=== PATIENT | female | born 1945 | race Caucasian/White ===

== ENCOUNTER 2018-02-26 07:55 | Outpatient (CLI) | payer MEDICARE ==
[2018-02-26] MEDS ORDERED: Iopamidol 370 76% 100 ML VIAL ONE (12:33)
--- NOTE | 2018-02-27 18:27 | CT ---
CT ABDOMEN AND PELVIS WITH CONTRAST 02/27/18 HISTORY: K57.41 - diverticulitis with perforation. COMPARISON: None. FINDINGS: The lung bases are clear. No pericardial effusion. There is acute sigmoid diverticulitis with extensive inflammatory stranding, likely a small focal are a of contained perforation. There is engorgement of the gonadal veins. The aortoiliac contour is denis neurysmal. No hydroureteronephrosis. Liver and spleen are unremarkable as well as the pancreas. Small sliding hiatal hernia. There is smal l volume fluid on the right pericolic gutter. IMPRESSION: Acute sigmoid diverticulitis with likely a very small focal area of contained perforation along the a ntimesenteric wall. POS: SANTINO
== END 2018-02-26 07:56 | disposition home or self-care (01) ==
LOC: BICCT 07:55
PROVIDERS: ATTEND Surgery
DX: K57.41 Diverticulitis of both small and large intestine with perforation and abscess with bleeding (principal)
CPT/HCPCS: 74177

== ENCOUNTER 2018-02-26 15:06 | Inpatient (IN) | payer MEDICARE ==
[2018-02-26 16:36] LABS: #Eosinphils 0.1 thou/uL (0.0-0.7); #Lymphocytes 1.1 thou/uL (1.20-3.40); #Monocytes 0.9 thou/uL (0.11-0.59); %Basophils 0.3 % (0.0-1.0); %Lymphocytes 8.5 % (21.0-51.0); %Monocytes 7.1 % (0.0-10.0); %Neutrophils 83.2 % (42.0-75.0); Hemoglobin 13.3 g/dL (12.0-16.0); Mean Corpuscular HGB CONC 33.7 g/dL (32.0-36.0); Mean Corpuscular Hemoglobin 30.4 pg (27.0-31.0); Mean Corpuscular Volume 90.1 fl (81.0-99.0); Mean Platelet Volume 7.5 fL (7.4-10.4); Platelet Count 336 thou/uL (130-400); RBC Distribution Width 12.1 % (11.5-14.5); Red Blood Cell (RBC) Count 4.39 mill/uL (4.20-5.40); White Blood Cell (WBC) Count 13.3 thou/uL (4.8-10.8)
[2018-02-26 16:59] LABS: ALT (SGPT) 11 U/L (8-55); AST (SGOT) 21 U/L (5-34); Albumin 4.2 g/dL (3.4-4.8); Alkaline Phosphatase 83 U/L (40-150); Anion Gap 12 mmol/L (10-20); BUN (Urea Nitrogen) 9 mg/dL (9.8-20.1); Bilirubin, Total 0.6 mg/dL (0.2-1.2); Calc. Creatinine Clearance 0 mL/min (70-130); Calcium 9.6 mg/dL (7.8-10.44); Carbon Dioxide 25 mmol/L (23-31); Chloride 104 mmol/L (98-107); Estimated GFR-MDRD 78; Globulin 4.1 g/dL (2.4-3.5); Glucose 109 mg/dL (83-110); Lipase 44 U/L (8-78); Potassium 3.7 mmol/L (3.5-5.1); Protein, Total 8.3 g/dL (6.0-8.3); Sodium 137 mmol/L (136-145)
[2018-02-26 17:02] LABS: Bilirubin Negative (Negative); Blood, Urine Moderate (Negative); Clarity CLEAR (Clear); Glucose, Urine (Dipstick) Negative (Negative); Leukocyte Small (Negative); Nitrite Negative (Negative); Protein, Urine (Dipstick) Negative (Neg-Trace); Specific Gravity, Urine 1.036 (1.002-1.036); Urobilinogen 0.2 mg/dL (0.2-1.0)
[2018-02-26 17:02] LABS: CKMB 0.6 ng/mL (0-6.6); Troponin I Less than 0.010 ng/mL (< 0.028)
[2018-02-26 17:07] LABS: Bacteria/HPF None Seen HPF (None Seen); Hyaline Casts/LPF 0-3 HYALINE CAST LPF (0-3 Hyaline); Pathc Cast-AUWi Flag 0.29 (0-2.49); RBC/HPF 21-50 HPF (0-3); Squamous Epithelial 0-3 HPF (0-3)
[2018-02-26] MEDS ORDERED: Morphine 4 MG/ML VIAL ONE (17:15)
[2018-02-26] MEDS ORDERED: Ondansetron ODT 4 MG TAB ONE (17:21)
[2018-02-26] MEDS ORDERED: Acetaminophen 500 MG TAB ONE (18:34)
[2018-02-26] MEDS ORDERED: cefTRIAXone\\ROCEPHIN 2 GM VIAL ONE (19:41)
[2018-02-26] MEDS ORDERED: Sodium Chloride 0.9% 100 ML ONE (19:42)
[2018-02-26 20:25] LABS: Lactic Acid 0.8 mmol/L (0.5-2.2)
[2018-02-26] MEDS ORDERED: Ondansetron HCl/PF 4 MG/2 ML Vial IVP PRN (21:55)
[2018-02-26] MEDS ORDERED: Ondansetron ODT 4 MG TAB PO PRN (21:55)
--- NOTE | 2018-02-26 22:30 | PDOC.FPRHP ---
- History of Present Illness Chief Complaint: lower abdominal pain History of Present Illness: 72 yo CF with PMHx recent diverticulitis with suspected perforation s/p abx therapy and hospitalization presents for worsened abdominal pain. Pt saw Dr. Diaz recently who ordered repeat abd CT to reevaluate suspected microperforation from hospitalization from 02/01-02/07. CT scan showed diverticula without sign of inflammation or diverticulitis. Since discharge from hospital, she has completed total of 16 day course of cipro/flagyl started 02/01. Endorses minimal appetite and generalized weakness since last admission. last night, pt had small amount of vomiting x1 attributed to abdominal pain. After CT scan today, she went home and began having more intense diffuse lower abdominal pain that felt just like prior episode leading to hospitalization. Endorsed chills without fever. BMs have become more solid over last few days without blood. Pain not improved with BM. In ED, pt had fever 102.7 with tachycardia so admitted with concern for suspected sepsis. Pt has appt scheduled tomorrow with Dr. Diaz. PCP: Dr. Ott Code status: Full ED Course: Vanc 1g, Rocephin 2g, Levaquin 500 mg, morphine 4mg, NS 2L. - Allergies/Adverse Reactions Allergies Allergy/AdvReac Type Severity Reaction Status Date / Time Sulfa (Sulfonamide Allergy Verified 02/26/18 21:36 Antibiotics) - Home Medications Medication Instructions Recorded Confirmed Type Aspirin [Ecotrin] 81 mg PO HS 02/26/18 02/26/18 History Pantoprazole [Protonix] 40 mg PO HS 02/26/18 02/26/18 History Simvastatin [Zocor] 20 mg PO HS 02/26/18 02/26/18 History Valsartan [Diovan] 80 mg PO HS 02/26/18 02/26/18 History diphenhydrAMINE [Benadryl] 25 mg PO HS 02/26/18 02/26/18 History - History PMHx: HTN, HLD, GERD, diverticulosis, hx Meckel's diverticulum PSHx: C/S x1 in 's, appendectomy FHx: Mother - CVA. Father - COPD, diverticulosis, prostate cancer. Sister - MS Social: Distant smoking hx - quit > 50 yrs ago. Denies alcohol or drug use. - Review of Systems General: reports: fever/chills, weight/appetite/sleep changes, fatigue Eyes: denies: eye pain, vision changes ENT: denies: nasal congestion, rhinorrhea Respiratory: denies: cough, shortness of breath Cardiovascular: denies: chest pain, edema Gastrointestinal: reports: nausea, vomiting, abdominal pain. denies: diarrhea, constipation, GI bleeding Genitourinary: denies: incontinence, dysuria, polyuria, discharge Skin: denies: rashes, itching Musculoskeletal: denies: pain, stiffness Neurological: reports: weakness. denies: numbness Psychological: denies: anxiety, depression - Vital signs BP: 157/100 HR: 126 RR: 20 Tmax: 102.6 Pox: 94% on RA Wt: 74.8 kg - Physical Exam Constitutional: NAD, awake, alert and oriented, well developed, other (warm and mildly diaphoretic) HEENT: PERRLA, EOMI, conjunctiva clear, grossly normal vision, grossly normal hearing, good dention, other (mildly dry mucous membranes) Neck: supple, FROM Heart: RRR, normal S1/S2, no murmurs/rubs/gallops Lungs: CTAB, no respiratory distress, good air movement, no rales/rhonchi Abdomen: soft, bowel sounds present, no masses/distention, other (moderately TTP LLQ, mildly TTP suprapubic and RLQ; no guarding/rigidity/rebound) Musculoskeletal: normal structure, ROM grossly normal Neurological: no focal deficit, CN II-XII intact Skin: no rash/lesions, capillary refill <2 seconds, other (mild facial flushing) Psychiatric: normal mood and affect, good judgment and insight, intact recent and remote memory FMR H&P: Results - Labs Result Diagrams: 02/26/18 16:27 02/26/18 16:27 Lab results: WBC 13.3 thou/uL (4.8-10.8) H 02/26/18 16:27 Hgb 13.3 g/dL (12.0-16.0) 02/26/18 16:27 Hct 39.6 % (36.0-47.0) 02/26/18 16:27 MCV 90.1 fl (81.0-99.0) 02/26/18 16:27 Plt Count 336 thou/uL (130-400) 02/26/18 16:27 Neutrophils % 83.2 % (42.0-75.0) H 02/26/18 16:27 Sodium 137 mmol/L (136-145) 02/26/18 16:27 Potassium 3.7 mmol/L (3.5-5.1) 02/26/18 16:27 Chloride 104 mmol/L (98-107) 02/26/18 16:27 Carbon Dioxide 25 mmol/L (23-31) 02/26/18 16:27 BUN 9 mg/dL (9.8-20.1) L 02/26/18 16:27 Creatinine 0.73 mg/dL (0.6-1.1) 02/26/18 16:27 Glucose 109 mg/dL (83-110) 02/26/18 16:27 Lactic Acid 0.8 mmol/L (0.5-2.2) 02/26/18 19:59 Calcium 9.6 mg/dL (7.8-10.44) 02/26/18 16:27 Total Bilirubin 0.6 mg/dL (0.2-1.2) 02/26/18 16:27 AST 21 U/L (5-34) 02/26/18 16:27 ALT 11 U/L (8-55) 02/26/18 16:27 Alkaline Phosphatase 83 U/L (40-150) 02/26/18 16:27 CK-MB (CK-2) 0.6 ng/mL (0-6.6) 02/26/18 16:27 Serum Total Protein 8.3 g/dL (6.0-8.3) 02/26/18 16:27 Albumin 4.2 g/dL (3.4-4.8) 02/26/18 16:27 Lipase 44 U/L (8-78) 02/26/18 16:27 Urine Ketones Negative mg/dL (Negative) 02/26/18 16:48 Urine Blood Moderate (Negative) H 02/26/18 16:48 Urine Nitrite Negative (Negative) 02/26/18 16:48 Ur Leukocyte Esterase Small (Negative) H 02/26/18 16:48 Urine RBC 21-50 HPF (0-3) H 02/26/18 16:48 Urine WBC 4-6 HPF (0-3) H 02/26/18 16:48 Ur Squamous Epith Cells 0-3 HPF (0-3) 02/26/18 16:48 Urine Bacteria None Seen HPF (None Seen) 02/26/18 16:48 - EKG Interpretation EKG: NSR, normal EKG - Radiology Interpretation CT scan - abdomen Status: report reviewed by me Additional comment: Performed as outpt this AM. Diverticula present without signs of inflammation or diverticulitis. No free air noted. Other visualized organs negative. FMR H&P: A/P - Problem List (1) Sepsis, unspecified organism Current Visit: Yes Status: Acute Code(s): A41.9 - SEPSIS, UNSPECIFIED ORGANISM Qualifiers: Sepsis type: sepsis due to unspecified organism Qualified Code(s): A41.9 - Sepsis, unspecified organism Assessment and Plan: Meets criteria with elev WBCs, elev HR, and fever 102.6. Heavy IV fluids and broad spectrum abx in ED. Continue abx with coverage for intra-abdominal infections as abd pain suggests this as etiology. Lactate 2.1 and decreased on repeat. BCx/UCx ordered. UA dirty but does not appear to reflect UTI along with no urinary complaints. Vitals more stable currently so admitted to medical floor for expected 2-3 day stay. (2) Lower abdominal pain Current Visit: Yes Status: Acute Code(s): R10.30 - LOWER ABDOMINAL PAIN, UNSPECIFIED Assessment and Plan: Hx perforated diverticulitis. Recently finished abx around 8 days ago. Decreased appetite since late January. Abd pain has improved after IV fluids, abx , and morphine earlier in ED. Exam showed moderate TTP without peritoneal signs. No suspicion at this time for perforation. CT this AM showed no diverticulitis with symptoms occurring following scan. Will reimage if symptoms return. Consulted Dr. Diaz this evening. Appreciate his recs. NPO now. Continue IV abx to cover abdominal tana. Hold vanc. (3) Diverticula of colon Current Visit: Yes Status: Acute Code(s): K57.30 - DVRTCLOS OF LG INT W/O PERFORATION OR ABSCESS W/O BLEEDING Assessment and Plan: Known with prior hx of diverticulitis late last month. See above. No obvious recurrence of infection based on negative imaging this AM. Await gen surg recs. (4) Weakness generalized Current Visit: Yes Status: Acute Code(s): R53.1 - WEAKNESS Assessment and Plan: Pt endorses weakness since prior hospitalization that she attributes to not eating much over last 10 days. PT/OT evaluation ordered. (5) HTN (hypertension) Current Visit: Yes Status: Acute Code(s): I10 - ESSENTIAL (PRIMARY) HYPERTENSION Qualifiers: Hypertension type: essential hypertension Qualified Code(s): I10 - Essential (primary) hypertension Assessment and Plan: Continue home meds. (6) HLD (hyperlipidemia) Current Visit: Yes Status: Acute Code(s): E78.5 - HYPERLIPIDEMIA, UNSPECIFIED Assessment and Plan: Home meds Attending Addendum - Attending Addendum Date/Time: 02/27/186 I personally evaluated the patient and discussed the management with Dr. Dalia Hernandez I agree with the History, Examination, Assessment and Plan documented above with any addition or exceptions noted below- Briefly this is a 72 year old female with h/o HTN, GERD, HLD who was seen in the ER in [place] for abdominal pain then transferred to [place] on February 01 for diverticulitis with possible performation. Patient was admitted and monitored; she was treated with IV antibiotics. Symptoms improved and patient was discharged with po antibiotics and instructions for follow-up. Patient had follow-up with PCP and referred to general surgery who saw her and ordered repeat CT scan. Had repeat CT scan today after [facility] [place] she developed LLQ pain the same as previously and came to ER. In ER she was found to have fever up to 102.7 and is admitted for further evaluation. Prior to today had not had any fevers. She does endorse decreased appetite and her energy has never returned to her usualPMH/PSH/Meds/ All/SH/ROS reviewed and agree with resident's documentation. T99.4 P101 RR18 BP 114/70 Exam repeated by me and agree with resident's findings. Labs: WBC 13.3 Hgb13.[address] scan- diverticula present but no sign of inflammation. A/P 1) Fever and abdominal pain- continue IV abx. Blood cultures drawn and pending. Leave NPO for now. Dr. Diaz notified and will see patient in AM. 2) HTN- continue home meds.
[2018-02-26 22:39] VITALS: BMI 28.5
[2018-02-26] MEDS: Sodium Chloride 0.45% 1,000 ML IV SCH (23:02)
[2018-02-26] MEDS: metroNIDAZOLE 500 MG in Premix Bag 1 BAG IVPB SCH (23:08)
[2018-02-26] MEDS: Acetaminophen 325 MG TAB PO PRN (23:08)
[2018-02-27] MEDS: Acetaminophen 325 MG TAB PO PRN ×4 (04:03→16:43)
[2018-02-27 04:07] LABS: #Eosinphils 0.1 thou/uL (0.0-0.7); #Monocytes 1.5 thou/uL (0.11-0.59); #Neutrophils 13.6 thou/uL (1.40-6.50); %Basophils 0.3 % (0.0-1.0); %Eosinophils 0.4 % (0.0-10.0); %Lymphocytes 11.7 % (21.0-51.0); %Monocytes 8.9 % (0.0-10.0); %Neutrophils 78.7 % (42.0-75.0); Hemoglobin 11.7 g/dL (12.0-16.0); Mean Corpuscular HGB CONC 33.2 g/dL (32.0-36.0); Mean Corpuscular Hemoglobin 30.2 pg (27.0-31.0); Mean Platelet Volume 7.6 fL (7.4-10.4); Platelet Count 271 thou/uL (130-400); RBC Distribution Width 12.3 % (11.5-14.5); Red Blood Cell (RBC) Count 3.86 mill/uL (4.20-5.40); White Blood Cell (WBC) Count 17.3 thou/uL (4.8-10.8)
[2018-02-27 04:33] LABS: Anion Gap 10 mmol/L (10-20); BUN (Urea Nitrogen) 7 mg/dL (9.8-20.1); Calc. Creatinine Clearance 92 mL/min (70-130); Calcium 8.1 mg/dL (7.8-10.44); Carbon Dioxide 24 mmol/L (23-31); Chloride 107 mmol/L (98-107); Estimated GFR-MDRD 88; Glucose 98 mg/dL (83-110); Potassium 3.8 mmol/L (3.5-5.1); Sodium 137 mmol/L (136-145)
[2018-02-27] MEDS: metroNIDAZOLE 500 MG in Premix Bag 1 BAG IVPB SCH ×3 (05:44→22:34)
[2018-02-27] MEDS: Sodium Chloride 0.45% 1,000 ML IV SCH ×3 (05:45→22:35)
--- NOTE | 2018-02-27 09:31 | PDOC.FM ---
- Subjective Subjective: Patient still having pain this morning but not as severe as last night. Tolerable with tylenol. She is frustrated. Reports BM yesterday, no diarrhea. Small BM this AM. Pain is worst in LLQ- sharp at times. - Objective MAR Reviewed: Yes Vital Signs & Weight: Vital Signs (12 hours) Temp Pulse Resp BP Pulse Ox 02/27/18 08:00 98.2 F 84 16 95 02/27/18 07:21 98.2 F 84 16 133/78 95 02/27/18 04:00 97.9 F 85 20 145/75 H 100 02/27/18 00:00 99.3 F 93 20 102/64 95 02/26/18 23:23 99.4 F 101 H 18 94 L I&O: 02/26/18 02/27/18 02/28/18 06:59 06:59 06:59 Intake Total 818 Balance 818 Result Diagrams: 02/27/18 03:44 02/27/18 03:44 <Larisa Ritchie - Last Filed: 02/27/18 11:42> - Objective Vital Signs & Weight: Vital Signs (12 hours) Temp Pulse Resp BP Pulse Ox 02/28/18 07:29 98.8 F 97 16 148/76 H 95 Weight Admit Weight 75.438 kg Weight 75.438 kg I&O: 02/27/18 02/28/18 03/01/18 06:59 06:59 06:59 Intake Total 818 1300 Balance 818 1300 Result Diagrams: 02/28/18 03:30 02/28/18 03:30 <Michael Cristina A - Last Filed: 02/28/18 10:28> Phys Exam - Physical Examination Constitutional: NAD HEENT: moist MMs Respiratory: no wheezing, no rales, no rhonchi, clear to auscultation bilateral Cardiovascular: RRR, no significant murmur Gastrointestinal: soft Tender in LLQ, otherwise nontender. hyperactive BS, no distention no rigidity, some guarding. Musculoskeletal: no edema Neurological: non-focal, normal sensation, moves all 4 limbs Psychiatric: A&O x 3 Skin: cap refill <2 seconds <Larisa Ritchie - Last Filed: 02/27/18 11:42> Dx/Plan (2) Diverticula of colon Code(s): K57.30 - DVRTCLOS OF LG INT W/O PERFORATION OR ABSCESS W/O BLEEDING Status: Acute (3) HLD (hyperlipidemia) Code(s): E78.5 - HYPERLIPIDEMIA, UNSPECIFIED Status: Acute (4) HTN (hypertension) Code(s): I10 - ESSENTIAL (PRIMARY) HYPERTENSION Status: Acute QualifierTitle: Hypertension type: essential hypertension Qualified Code( s): I10 - Essential (primary) hypertension (5) Sepsis, unspecified organism Code(s): A41.9 - SEPSIS, UNSPECIFIED ORGANISM Status: Acute QualifierTitle: Sepsis type: sepsis due to unspecified organism Qualified Code(s): A41.9 - Sepsis, unspecified organism - Plan Plan: 72 yr old female with abdominal pain, fever, tachycardia, and elevated WBC. sepsis suspected to be 2/2 diverticulitis. - differential includes abdominal abscess however yesterdays CT does not show it and reportedly done with oral contrast. -cont IV abx, afebrile. Cont IV fluids. Cont NPO -appreciate general surgery recommendations -low threshold for repeat CT if pain acutely worsens. HTN - cont home meds HLD - cont home meds <Larisa Ritchie - Last Filed: 02/27/18 11:42> Attending Addendum - Attending Addendum Date/Time: 02/28/18 1026 I personally evaluated the patient and discussed the management with Dr. Ritchie. I agree with the History, Examination, Assessment and Plan documented above with any addition or exceptions noted below. Abd pain improved. No vomitting. Afeb. Awaiting results of CT done prior and consultation by Joe (LYNNETTE). Probable flair of diverticulitis per history of recent hospitalization per pt. report. <Michael Cristina - Last Filed: 02/28/18 10:28>
--- NOTE | 2018-02-27 13:17 | CON ---
DATE OF CONSULTATION: 02/27/2018 CHIEF COMPLAINT: Left lower quadrant abdominal pain. HISTORY OF PRESENT ILLNESS: This is a 72-year-old female who had a local perforation of diverticulit is a month ago on 02/01/2018. That was treated in [place] and she was then sent here for further care. She was treated nonoperatively. She did have microperforation and was doing well. In fact, yesterd ay she went in for a follow up CT scan of the abdomen and pelvis to make sure the little pocket of pe rforation had resolved. After the CT she developed severe left lower quadrant pain, rigors, fever, n ausea, vomiting, just like the previous perforation. She is better now. She is passing some flatus. PAST MEDICAL HISTORY: Hypertension, hyperlipidemia, gastroesophageal reflux, history of diverticulit is. PAST SURGICAL HISTORY: She had a Meckel's diverticulectomy, appendectomy, section. MEDICATIONS: Protonix, valsartan, simvastatin, aspirin. ALLERGIES: SULFA. SOCIAL HISTORY: She is . No tobacco or alcohol. PHYSICAL EXAMINATION: VITAL SIGNS: Temperature 98.8, pulse 86, blood pressure 144/76. GENERAL: She is awake, alert, minimal distress. HEENT: Unremarkable. LUNGS: Clear. HEART: Regular rate and rhythm. ABDOMEN: Soft, nondistended. She is tender in the left lower quadrant to percussion. EXTREMITIES: Unremarkable. LABORATORY AND X-RAY FINDINGS: White count 17, H&H 11 and 35, platelet count 271. Electrolytes are fine. ASSESSMENT: Recurrent diverticulitis. PLAN: Repeat CT scan. Will also keep her at bowel rest, treat her with antibiotics.
[2018-02-27] MEDS ORDERED: Iopamidol 370 76% 100 ML VIAL ONE (13:21)
[2018-02-27] MEDS ORDERED: Ibuprofen 800 MG TAB PO PRN (16:53)
[2018-02-27] MEDS ORDERED: cefTRIAXone\\ROCEPHIN 2 GM in Sodium Chloride 0.9% 100 ML IVPB SCH (20:00)
[2018-02-27] MEDS ORDERED: Atorvastatin Calcium 10 MG TAB PO SCH (21:00)
[2018-02-27] MEDS ORDERED: Valsartan 80 MG TAB PO SCH (21:00)
[2018-02-27] MEDS ORDERED: diphenhydrAMINE 25 MG CAP PO SCH (21:00)
[2018-02-27] MEDS ORDERED: Aspirin 81 mg Enteric Coated Tablet PO SCH (21:00)
[2018-02-28 04:36] LABS: #Eosinphils 0.3 thou/uL (0.0-0.7); #Lymphocytes 1.3 thou/uL (1.20-3.40); #Monocytes 1.3 thou/uL (0.11-0.59); #Neutrophils 8.8 thou/uL (1.40-6.50); %Basophils 0.3 % (0.0-1.0); %Eosinophils 2.6 % (0.0-10.0); %Lymphocytes 10.8 % (21.0-51.0); %Monocytes 10.9 % (0.0-10.0); %Neutrophils 75.5 % (42.0-75.0); Hemoglobin 11.1 g/dL (12.0-16.0); Mean Corpuscular Volume 90.9 fl (81.0-99.0); Mean Platelet Volume 8.1 fL (7.4-10.4); Platelet Count 225 thou/uL (130-400); RBC Distribution Width 12.1 % (11.5-14.5); White Blood Cell (WBC) Count 11.7 thou/uL (4.8-10.8)
[2018-02-28 04:54] LABS: Anion Gap 13 mmol/L (10-20); BUN (Urea Nitrogen) 5 mg/dL (9.8-20.1); Calc. Creatinine Clearance 103 mL/min (70-130); Calcium 8.5 mg/dL (7.8-10.44); Carbon Dioxide 22 mmol/L (23-31); Chloride 107 mmol/L (98-107); Estimated GFR-MDRD Greater than 90; Glucose 76 mg/dL (83-110); Potassium 3.2 mmol/L (3.5-5.1); Sodium 139 mmol/L (136-145)
[2018-02-28] MEDS: Sodium Chloride 0.45% 1,000 ML IV SCH (05:40)
[2018-02-28] MEDS: metroNIDAZOLE 500 MG in Premix Bag 1 BAG IVPB SCH ×2 (05:40→14:50)
[2018-02-28] MEDS: Acetaminophen 325 MG TAB PO PRN (05:40)
--- NOTE | 2018-02-28 06:57 | PDOC.FM ---
- Subjective Subjective: Patient feeling better this AM. She is ready to go home if okay. Visited pt this morning while Dr. Diaz was in the room and together discussed discharging patient with PO antibiotics for 2 weeks and he will plan for surgery in a month. She did not want to be on flagyl so we agreed to clelynsey and gunjan. She was warned of the possibility of C. diff and symptoms to monitor for. She states abdominal pain is improved. No N/V. - Objective MAR Reviewed: Yes Vital Signs & Weight: Vital Signs (12 hours) Temp Pulse Resp BP Pulse Ox 02/27/18 20:00 99.0 F 91 18 133/73 94 L Weight Admit Weight 75.438 kg Weight 75.438 kg I&O: 02/26/18 02/27/18 02/28/18 06:59 06:59 06:59 Intake Total 818 1300 Balance 818 1300 Result Diagrams: 02/28/18 03:30 02/28/18 03:30 <Larisa Ritchie - Last Filed: 02/28/18 08:23> - Objective Vital Signs & Weight: Vital Signs (12 hours) Temp Pulse Resp BP Pulse Ox 02/28/18 07:29 98.8 F 97 16 148/76 H 95 Weight Admit Weight 75.438 kg Weight 75.438 kg I&O: 02/27/18 02/28/18 03/01/18 06:59 06:59 06:59 Intake Total 818 1300 Balance 818 1300 Result Diagrams: 02/28/18 03:30 02/28/18 03:30 <Michael Cristina - Last Filed: 02/28/18 10:31> Phys Exam - Physical Examination Constitutional: NAD Respiratory: no wheezing, no rales, no rhonchi, clear to auscultation bilateral Cardiovascular: RRR 2/6 systolic murmur LUSB Gastrointestinal: soft mild tender to palpation in LLQ Musculoskeletal: no edema Psychiatric: normal affect, A&O x 3 Skin: cap refill <2 seconds <Larisa Ritchie - Last Filed: 02/28/18 08:23> Dx/Plan (1) Diverticulitis large intestine Code(s): K57.32 - DVTRCLI OF LG INT W/O PERFORATION OR ABSCESS W/O BLEEDING Status: Acute QualifierTitle: Diverticulitis bleeding: without bleeding Diverticulitis complication: without perforation or abscess Qualified Code(s): K57.32 - Diverticulitis of large intestine without perforation or abscess without bleeding (2) Diverticula of colon Code(s): K57.30 - DVRTCLOS OF LG INT W/O PERFORATION OR ABSCESS W/O BLEEDING Status: Acute (3) HLD (hyperlipidemia) Code(s): E78.5 - HYPERLIPIDEMIA, UNSPECIFIED Status: Acute (4) HTN (hypertension) Code(s): I10 - ESSENTIAL (PRIMARY) HYPERTENSION Status: Acute QualifierTitle: Hypertension type: essential hypertension Qualified Code( s): I10 - Essential (primary) hypertension (5) Sepsis, unspecified organism Code(s): A41.9 - SEPSIS, UNSPECIFIED ORGANISM Status: Resolved QualifierTitle: Sepsis type: sepsis due to unspecified organism Qualified Code(s): A41.9 - Sepsis, unspecified organism - Plan Plan: 72 yr old female with abdominal pain, fever, tachycardia, and elevated WBC. recurrent diverticulitis. -switch to clear liquid diet. -if tolerating liquids, will DC later today with cleocin and cipro -appreciate general surgery recommendations -follow up with gen surg in a week. -monitor for diarrhea -consult dietary for low residue diet HTN - cont home meds HLD - cont home meds hypokalemia -40 mEq IV <Larisa Ritchie - Last Filed: 02/28/18 08:23> Attending Addendum - Attending Addendum Date/Time: 02/28/18 1028 I personally evaluated the patient and discussed the management with Dr. Ritchie. I agree with the History, Examination, Assessment and Plan documented above with any addition or exceptions noted below. Pt. symptoms improved. Afeb. Vitals stable. Tenderness improved. CT abd with acute diverticulitis with contained perforation. Plan is to advance diet and if tolerated on low residue, will d/c home on P.o. abx's with plan for partial colectomy of affected segment when inflammation is improved. and more optimal for resection. <Michael Cristina - Last Filed: 02/28/18 10:31>
[2018-02-28] MEDS ORDERED: Potassium Chloride 40 MEQ in Sodium Chloride 0.9% 250 ML 250 ML IVPB SCH (07:00)
[2018-02-28 07:31] VITALS: BP 148/76; TEMP 98.8
[2018-02-28] MEDS ORDERED: Ciprofloxacin 500 MG TAB PO SCH ×2 (08:27→20:00)
[2018-02-28] MEDS ORDERED: Clindamycin 150 MG CAP PO SCH (09:00)
--- NOTE | 2018-02-28 10:41 | PRG ---
DATE OF SERVICE: 02/28/2018 SUBJECTIVE: Patient is feeling much better today. Pain is pretty well gone away. Still a little bi t of residual tenderness. No nausea or vomiting. She feels like she wants to go home. She is lizeth ating clear liquids. PHYSICAL EXAMINATION: VITAL SIGNS: Her temperature is 98.8, pulse 97, blood pressure 148/76. GENERAL: She is awake, alert, in no apparent distress. ABDOMEN: Soft, obese. She is tender in the left lower quadrant, no palpable mass. IMAGING: Repeat CT scan did show acute diverticulitis with an antimesenteric microperforation. No d rainable fluid. IMPRESSION: Recurrent diverticulitis. PLAN: Recommend a consultation with dietitian to advise her on a low residue diet. She probably dwight uld stay on a liquid diet for 5-7 days and then low residue diet. I recommend she stay on antibiotic s for the next 2-3 weeks. Cipro and Flagyl or Cipro and Cleocin. Also, her white count has gone helena n from 17,000-11,000, so she is getting better. So, plan is follow up with me in 2 weeks.
[2018-02-28] MEDS ORDERED: Cipro 250 MG TAB PO SCH (20:00)
--- NOTE | 2018-03-01 12:43 | CT ---
CT ABDOMEN AND PELVIS WITH CONTRAST 02/27/18 HISTORY: K57.41 - diverticulitis with perforation. COMPARISON: None. FINDINGS: The lung bases are clear. No pericardial effusion. There is acute sigmoid diverticulitis with extensive inflammatory stranding, likely a small focal area of contained perforation. There is engorgement of the gonadal veins. The aortoiliac contour is nonaneurysmal. No hydroureteronephrosis. Liver and spleen are unremarkable as well as the pancreas. Small sliding hiatal hernia. There is small volume fluid on the right pericolic gutter. IMPRESSION: Acute sigmoid diverticulitis with likely a very small focal area of contained perforation along the antimesenteric wall.
--- NOTE | 2018-03-01 14:53 | DIS-2 ---
DATE OF ADMISSION: 02/27/2018 DATE OF DISCHARGE: 02/28/2018 ADMITTING ATTENDING: Chel Ott M.D. DISCHARGE ATTENDING: Michael Cristina M.D. CONSULTATIONS: Made to Dr. Daniel Diaz of General Surgery. PRIMARY DIAGNOSIS: Sepsis secondary to recurrent diverticulitis. SECONDARY DIAGNOSES: 1. Hyperlipidemia. 2. Hypertension. IMAGING STUDIES: There was a CT scan done on 02/27/2018, which showed acute sigmoid diverticulitis w ith likely very small focal area of contained perforation along the antimesenteric wall. HOSPITAL COURSE: This is a 72-year-old female with a recent history of diverticulitis, who presented to the ER with acute onset of left lower quadrant abdominal pain. Patient states she was hospitaliz ed approximately a month ago for diverticulitis in [place], [place] with a small microperforation. Patien t states she was treated medically with antibiotics and went home and completed 16 days of antibiotic s. She is followed up with the general surgeon the day before admission and got a CT scan and shortl y after developed acute left lower quadrant abdominal pain. The patient was admitted to the hospital and started on antibiotics. General surgery consult was made to Dr. Daniel Diaz. A repeat CT scan o f the abdomen was obtained and the patient was found to have acute diverticulitis. The patient impro cecile significantly by day 2 of her hospitalization and it was agreed upon with the general surgeon momo t she can go home on p.o. antibiotics for at least 2 weeks and to follow up with her general surgeon in 2 to 3 weeks. Patient's other chronic medical conditions were controlled throughout this hospitalization. DISPOSITION: Stable. DISCHARGE INSTRUCTIONS: 1. Location: Home. 2. Diet: Clear liquids for the first 5-7 days, followed by a low-fiber diet, which she was consulte d on by dietary prior to discharge. 3. Follow up with Dr. Daniel Diaz in 2 to 3 weeks and follow up with her primary care physician.
== END 2018-02-28 16:48 | disposition home or self-care (01) | DRG 872 ==
LOC: ERS 15:06 → T4-A 19:55
PROVIDERS: ADMIT Family Medicine; ATTEND Family Medicine
DX: A41.9 Sepsis, unspecified organism (principal); K57.92 Diverticulitis of intestine, part unspecified, without perforation or abscess without bleeding; I10 Essential (primary) hypertension; E78.5 Hyperlipidemia, unspecified; E87.6 Hypokalemia; K21.9 Gastro-esophageal reflux disease without esophagitis
CPT/HCPCS: 36415; 74177; 80048; 80053; 81003; 81015; 82553; 83605; 83690; 84484; 85025; 87040; 87086; 93005; 96361; 96365; 96367; 96375; G8978-GP-CI; G8979-GP-CI; G8980-GP-CI; G8987-GO-CI; G8988-GO-CI; G8989-GO-CI; J0696; J2270; J3370; J3480; J7050; Q0162

== ENCOUNTER 2018-04-01 13:50 | Outpatient (CLI) | payer MEDICARE ==
[2018-04-01 16:10] LABS: Hemoglobin A1c 5.4 % (4.0-6.0)
[2018-04-01 16:24] LABS: ALT (SGPT) 7 U/L (8-55); AST (SGOT) 20 U/L (5-34); Alkaline Phosphatase 70 U/L (40-150); Anion Gap 11 mmol/L (10-20); BUN (Urea Nitrogen) 7 mg/dL (9.8-20.1); Bilirubin, Total 0.4 mg/dL (0.2-1.2); Calc. Creatinine Clearance 0 mL/min (70-130); Calcium 9.8 mg/dL (7.8-10.44); Carbon Dioxide 29 mmol/L (23-31); Chloride 102 mmol/L (98-107); Estimated GFR-MDRD 80; Globulin 4.1 g/dL (2.4-3.5); Glucose 95 mg/dL (83-110); Potassium 3.7 mmol/L (3.5-5.1); Protein, Total 8.1 g/dL (6.0-8.3); Sodium 138 mmol/L (136-145)
[2018-04-01 16:39] LABS: #Basophils 0.1 thou/uL (0.0-0.2); #Eosinphils 0.2 thou/uL (0.0-0.7); #Lymphocytes 1.7 thou/uL (1.20-3.40); #Monocytes 0.7 thou/uL (0.11-0.59); #Neutrophils 4.2 thou/uL (1.40-6.50); %Basophils 1.5 % (0.0-1.0); %Eosinophils 2.7 % (0.0-10.0); %Lymphocytes 24.8 % (21.0-51.0); Hemoglobin 12.3 g/dL (12.0-16.0); Mean Corpuscular HGB CONC 33.2 g/dL (32.0-36.0); Mean Corpuscular Hemoglobin 29.6 pg (27.0-31.0); Mean Corpuscular Volume 89.2 fl (81.0-99.0); Platelet Count 409 thou/uL (130-400); RBC Distribution Width 12.3 % (11.5-14.5); Red Blood Cell (RBC) Count 4.16 mill/uL (4.20-5.40)
== END 2018-04-01 13:51 | disposition home or self-care (01) ==
LOC: LABBT 13:50
PROVIDERS: ATTEND Surgery
DX: Z01.812 Encounter for preprocedural laboratory examination (principal); K57.80 Diverticulitis of intestine, part unspecified, with perforation and abscess without bleeding
CPT/HCPCS: 80053; 83036; 85025

== ENCOUNTER 2018-04-01 14:00 | Inpatient (IN) | payer MEDICARE ==
[2018-04-01 14:33] VITALS: BMI 26.7
[2018-04-08] MEDS ORDERED: Dexamethasone 4 mg/ml Vial ONE (09:48)
[2018-04-08] MEDS ORDERED: Fentanyl 100 MCG/2 ML VIAL ONE ×3 (09:48→13:21)
[2018-04-08] MEDS ORDERED: Midazolam HCl 2 mg/2 ml Vial ONE (09:48)
[2018-04-08] MEDS ORDERED: cefOXitin 2 GM VIAL ONE (10:07)
[2018-04-08] MEDS ORDERED: Sodium Chloride 0.9% 100 ML ONE (10:07)
[2018-04-08] MEDS ORDERED: Bupivacaine HCl 0.5%/Epinephrine 1:200,000/PF 30 ml Vial ONE (12:23)
[2018-04-08] MEDS ORDERED: Morphine Sulfate 2 MG/ML SYRINGE SLOW IVP PRN (12:34)
[2018-04-08] MEDS ORDERED: HYDROmorphone 2 MG/ML VIAL SLOW IVP PRN (12:34)
[2018-04-08] MEDS ORDERED: Promethazine HCl 25 MG/ML VIAL SLOW IVP PRN (12:34)
[2018-04-08] MEDS ORDERED: Ondansetron HCl/PF 4 MG/2 ML Vial IVP PRN ×2 (12:34→12:44)
[2018-04-08] MEDS ORDERED: Promethazine HCl 25 MG/ML VIAL IM PRN ×2 (12:34→12:44)
[2018-04-08] MEDS ORDERED: Meperidine HCl/PF 25 MG/ML VIAL SLOW IVP PRN (12:34)
[2018-04-08] MEDS ORDERED: hydrALAZINE 20 MG/ML VIAL SLOW IVP PRN (12:44)
[2018-04-08] MEDS ORDERED: cefOXitin 2 GM in Sodium Chloride 0.9% 100 ML IVPB SCH (14:00)
[2018-04-08] MEDS ORDERED: PROPOFOL 200 MG/20 ML VIAL ONE (14:24)
[2018-04-08] MEDS ORDERED: Lidocaine 1% PF 5 ML VIAL ONE (14:24)
[2018-04-08] MEDS ORDERED: Ketorolac Tromethamine 30 MG/ML VIAL ONE (14:24)
[2018-04-08] MEDS ORDERED: Dexamethasone 20 MG/5 ML VIAL ONE (14:24)
[2018-04-08] MEDS ORDERED: Glycopyrrolate 0.2 MG/ML 5 ML SYRINGE ONE (14:24)
[2018-04-08] MEDS ORDERED: Ondansetron HCl/PF 4 MG/2 ML Vial ONE (14:24)
--- NOTE | 2018-04-08 17:18 | OP ---
PREOPERATIVE DIAGNOSIS: Recurrent diverticulitis. SURGEON: Daniel Diaz M.D. PROCEDURE PERFORMED: Laparoscopic sigmoid colectomy. INDICATIONS: A 72-year-old female, who has had about 6 episodes of diverticulitis in the last 3 ruben hs and she had a CT scan documenting it. FINDINGS: There is a phlegmon in the mid sigmoid colon. A 29 EEA was used for the anastomosis. PROCEDURE IN DETAIL: After informed consent was obtained, the patient was taken to the operating harish m and given general endotracheal anesthesia. She was placed in the lithotomy position. The perineum , abdomen were prepped and draped in usual fashion. She had undergone tap blocks in the preop area. A 5 mm incision was performed in the right upper quadrant. Veress needle inserted. Drop test perfo rmed. Pneumoperitoneum was created to a volume of 2 liters of carbon dioxide. Utilizing a bladeless 5 mm trocar and 0 degree laparoscope, direct visual entry in the abdominal cavity was performed. Pn eumoperitoneum was then created to a pressure of 15 mmHg, although she had a previous low midline inc ision. The adhesions in the anterior abdominal wall were minimal. There was quite a bit of inflamma tion down in the pelvis, however. A 12-mm port was placed in the right lower quadrant and another 5- mm port placed at right lateral abdomen. Then the anatomy was dissected out to sigmoid colon was inf lamed and attached to the pelvic side wall. There was no evidence of abscess and appears distally to be pretty free of inflammation as well as proximal, elected at this point put a hand-assisted port i n which helped to dissect some small-bowel loops which were attached to this inflamed segment of colo n. The peritoneum was opened and blunt dissection was performed from medial to lateral through the m esentery to expose the ureter. The ureter was then visualized throughout the dissection. The perito neum was further extended distally and then was able to dissect the distal right at the rectosigmoid area. A linear 60 mm green load stapler used to divide the distal sigmoid colon just above the perit hunter reflection, then wound up bringing this colon without through the hand-assisted port. The invo lved segment of bowel was dissected out. The mesentery divided with the LigaSure. The large bowel w as divided sharply and the specimen sent to pathology for further analysis. A 29 EEA anvil was then inserted and the spike was brought out through the antimesenteric tenia. Then the colotomy was close d with the linear 60 mm blue load stapler. Hemostasis assured. This segment was reinserted into the abdomen, pneumoperitoneum reinsufflated, series of dilators used to dilate the rectum and then the 2 9 EEA was inserted transanally brought out just below the staple line, connected to the anvil and the n closed to the mid green level and fired, held for 30 seconds, and opened 3/4 turned and removed, __ ___ checked, they were intact. The anastomosis was tested by inserting a proctoscope into the rectum and air was used to insufflate the rectum underwater, there was no air leak. Hemostasis assured. I did partially mobilize the splenic flexure in order to ensure there was no tension on the anastomosi s. Again, hemostasis assured. Gowns and gloves were changed. The fascia was closed in 2 layers. T he transversalis closed with a running 2-0 Vicryl. The anterior fascia was closed with a running loo ped #1 PDS. Subcutaneous was thoroughly irrigated with pulse police worker. Hemostasis assured. Skin c losed with a running subcuticular 4-0 Rapide. The trocar sites were closed with interrupted 4-0 Rapi de. Dermabond applied. The patient tolerated the procedure well and transferred to recovery in good condition. Sponge and needle count verified correct x2.
[2018-04-08] MEDS: Sodium Chloride 0.9% 1,000 ML IV SCH (17:20)
[2018-04-08] MEDS: Acetaminophen 1,000 MG in Premix Bag 1 BAG IVPB SCH ×2 (18:44→23:27)
[2018-04-08] MEDS: Ketorolac Tromethamine 30 MG/ML VIAL IVP SCH ×2 (18:44→23:27)
[2018-04-08] MEDS: cefOXitin 2 GM in Sodium Chloride 0.9% 100 ML IVPB SCH (18:45)
[2018-04-08] MEDS: Famotidine/PF 20 mg/2ml Vial SLOW IVP SCH (21:49)
[2018-04-08] MEDS: Famotidine 20 MG TAB PO SCH (21:49)
[2018-04-09] MEDS: cefOXitin 2 GM in Sodium Chloride 0.9% 100 ML IVPB SCH (02:35)
[2018-04-09] MEDS: Sodium Chloride 0.9% 1,000 ML IV SCH ×3 (04:43→15:35)
[2018-04-09 04:47] LABS: #Lymphocytes 0.6 thou/uL (1.20-3.40); #Monocytes 0.7 thou/uL (0.11-0.59); #Neutrophils 9.5 thou/uL (1.40-6.50); %Basophils 0.1 % (0.0-1.0); %Eosinophils 0.1 % (0.0-10.0); %Lymphocytes 5.4 % (21.0-51.0); %Monocytes 6.1 % (0.0-10.0); %Neutrophils 88.4 % (42.0-75.0); Hemoglobin 10.5 g/dL (12.0-16.0); Mean Corpuscular HGB CONC 32.5 g/dL (32.0-36.0); Mean Corpuscular Hemoglobin 28.7 pg (27.0-31.0); Mean Corpuscular Volume 88.5 fL (78.0-98.0); Mean Platelet Volume 7.7 fL (7.4-10.4); Platelet Count 269 thou/uL (130-400); RBC Distribution Width 12.5 % (11.5-14.5); Red Blood Cell (RBC) Count 3.66 mill/uL (4.20-5.40); White Blood Cell (WBC) Count 10.8 thou/uL (4.8-10.8)
[2018-04-09 05:12] LABS: Anion Gap 15 mmol/L (10-20); BUN (Urea Nitrogen) 11 mg/dL (9.8-20.1); Calc. Creatinine Clearance 59 mL/min (70-130); Calcium 8.9 mg/dL (7.8-10.44); Carbon Dioxide 22 mmol/L (23-31); Chloride 107 mmol/L (98-107); Estimated GFR-MDRD 57; Glucose 113 mg/dL (83-110); Potassium 4.5 mmol/L (3.5-5.1); Sodium 139 mmol/L (136-145)
[2018-04-09] MEDS: Ketorolac Tromethamine 30 MG/ML VIAL IVP SCH ×4 (05:29→23:23)
[2018-04-09] MEDS: Acetaminophen 1,000 MG in Premix Bag 1 BAG IVPB SCH ×2 (05:29→12:00)
[2018-04-09] MEDS: Famotidine/PF 20 mg/2ml Vial SLOW IVP SCH ×2 (09:19→21:23)
[2018-04-09] MEDS: Famotidine 20 MG TAB PO SCH ×2 (09:20→21:35)
[2018-04-09] MEDS: Piperacillin/Tazobactam 3.375 GM in Sodium Chloride 0.9% 100 ML IVPB SCH ×3 (09:58→21:22)
[2018-04-09] MEDS: Enoxaparin Sodium 40 MG/0.4 ML SYRINGE SC SCH (10:55)
[2018-04-09] MEDS ORDERED: HYDROcodone/Acetaminophen 7.5/325 mg Tablet PO PRN (16:00)
[2018-04-09] MEDS: Zolpidem Tartrate 5 MG TAB PO PRN (23:22)
[2018-04-10] MEDS: Sodium Chloride 0.9% 1,000 ML IV SCH ×3 (01:05→14:44)
[2018-04-10] MEDS: Piperacillin/Tazobactam 3.375 GM in Sodium Chloride 0.9% 100 ML IVPB SCH ×4 (04:32→21:26)
[2018-04-10] MEDS: Ketorolac Tromethamine 30 MG/ML VIAL IVP SCH ×4 (05:54→22:49)
[2018-04-10] MEDS: Enoxaparin Sodium 40 MG/0.4 ML SYRINGE SC SCH (10:03)
[2018-04-10] MEDS: Famotidine 20 MG TAB PO SCH ×2 (10:04→21:26)
[2018-04-10] MEDS: Famotidine/PF 20 mg/2ml Vial SLOW IVP SCH ×2 (10:04→21:17)
[2018-04-10] MEDS: HYDROcodone/Acetaminophen 7.5/325 mg Tablet PO PRN ×2 (14:54→21:23)
[2018-04-10] MEDS: Zolpidem Tartrate 5 MG TAB PO PRN (22:49)
[2018-04-11] MEDS: Sodium Chloride 0.9% 1,000 ML IV SCH ×2 (00:36→07:38)
[2018-04-11] MEDS: Piperacillin/Tazobactam 3.375 GM in Sodium Chloride 0.9% 100 ML IVPB SCH ×2 (02:45→09:06)
[2018-04-11 04:30] VITALS: BP 138/68
[2018-04-11] MEDS: Ketorolac Tromethamine 30 MG/ML VIAL IVP SCH (06:52)
[2018-04-11] MEDS: Famotidine 20 MG TAB PO SCH (09:05)
[2018-04-11] MEDS: Famotidine/PF 20 mg/2ml Vial SLOW IVP SCH (09:06)
[2018-04-11] MEDS: Enoxaparin Sodium 40 MG/0.4 ML SYRINGE SC SCH (09:06)
[2018-04-11 11:08] VITALS: TEMP 98.5
--- NOTE | 2018-04-11 12:16 | DIS ---
DISCHARGE DIAGNOSES: Recurrent diverticulitis with diverticular phlegmon. PROCEDURES DURING ADMISSION: Laparoscopic sigmoid colectomy. HOSPITAL COURSE: The patient was admitted. She has undergone a mechanical bowel prep, she was taken to the operating room where she underwent a laparoscopic sigmoid resection. Postoperatively, she andres s done well. She was maintained on IV antibiotics. Her bowel function returned quickly. Her diet a dvanced. She is now discharged home on low residue diet. Pain is controlled on p.o. medications. Stephanie holden will continue the antibiotics for another 10 days. She will follow up with me in the office in 2 w [place].
== END 2018-04-11 11:10 | disposition home or self-care (01) | DRG 330 ==
LOC: SURG A 04-08 09:21
PROVIDERS: ADMIT Surgery; ATTEND Surgery
PROC: 0DBN4ZZ Excision of Sigmoid Colon, Percutaneous Endoscopic Approach (ICD-10-PCS; principal; 2018-04-08)
DX: K57.20 Diverticulitis of large intestine with perforation and abscess without bleeding (principal); I10 Essential (primary) hypertension
CPT/HCPCS: 36415; 36416; 80048; 85025; 88305; 88307; 96374; G8978-GP-CJ; G8979-GP-CJ; G8980-GP-CJ; J0131; J0360; J0670; J0694; J1100; J1650; J1885; J2001; J2250; J2270; J2405; J2543; J2704; J3010; J7050; S0028

== ENCOUNTER 2018-07-23 13:01 | Outpatient (CLI) | payer MEDICARE | END 2018-07-23 13:02 | disposition home or self-care (01) | LOC: BICMAMMO 13:01 | PROVIDERS: ATTEND Family Medicine | DX: Z12.31 Encounter for screening mammogram for malignant neoplasm of breast (principal); R92.1 Mammographic calcification found on diagnostic imaging of breast | CPT/HCPCS: 77063; 77067 ==

== ENCOUNTER 2020-10-06 14:22 | Outpatient (CLI) | payer MEDICARE ==
--- NOTE | 2020-10-06 15:21 | MMO ---
Bilateral MAMMO Bilat Screen [facility]. CLINICAL HISTORY: Patient is 75 years old and is seen for screening. The patient has no family history of breast cancer. The patient has no personal history of cancer. VIEWS: The views performed were: bilateral craniocaudal with tomosynthesis and bilateral mediolateral oblique with tomosynthesis. FILMS COMPARED: The present examination has been compared to prior imaging studies performed at [facility] on 02/15/2015, 02/21/2016, 02/27/2017 and 07/23/2018. This study has been interpreted with the assistance of computer-aided detection. MAMMOGRAM FINDINGS: The breasts are almost entirely fat. There are stable benign appearing calcifications seen in both breasts. There are no suspicious masses, suspicious calcifications, or new areas of architectural distortion. IMPRESSION: THERE IS NO MAMMOGRAPHIC EVIDENCE OF MALIGNANCY. A ROUTINE FOLLOW-UP MAMMOGRAM IN 1 YEAR IS RECOMMENDED. THE RESULTS OF THIS EXAM WERE SENT TO THE PATIENT. ACR BI-RADS Category 2 - Benign finding MAMMOGRAPHY NOTE: 1. A negative mammogram report should not delay a biopsy if a dominant of clinically suspicious mass is present. 2. Approximately 10% to 15% of breast cancers are not detected by mammography. 3. Adenosis and dense breasts may obscure an underlying neoplasm. Reported by: RORY ALATORRE MD Electonically Signed: [id number]
--- NOTE | 2020-10-06 15:59 | BD ---
DEXA BONE DENSITY STUDY: Date: 10/06/2020 HISTORY: Postmenopausal screening. FINDINGS: Lumbar Spine: BMD (g/cm2) L1 1.028 T-Score: 0.3 L2 0.966 T-Score: -0.6 L3 0.885 T-Score: -1.8 L4 0.791 T-Score: -2.5 Total 0.904 T-Score: -1.3 Left Femoral Neck: 0.653 T-Score: -1.8 Total Femur: 0.789 T-Score: -1.3 IMPRESSION: Calculated bone mineral density meets WHO criteria for osteopenia and places the patient at increased risk for fracture. POS: BRANDON
== END 2020-10-06 14:23 | disposition home or self-care (01) ==
LOC: BICMAMMO 14:22
PROVIDERS: ATTEND Family Medicine
DX: Z12.31 Encounter for screening mammogram for malignant neoplasm of breast (principal); Z13.820 Encounter for screening for osteoporosis; M85.89 Other specified disorders of bone density and structure, multiple sites
CPT/HCPCS: 77063; 77067; 77080

== ENCOUNTER 2022-11-20 14:21 | Outpatient (CLI) | payer MEDICARE, OTHER | END 2022-11-20 14:22 | disposition home or self-care (01) | LOC: RAD 14:21 | PROVIDERS: ATTEND Nurse Practitioner Family | DX: M79.671 Pain in right foot (principal); S92.351A Displaced fracture of fifth metatarsal bone, right foot, initial encounter for closed fracture ==

== ENCOUNTER 2025-08-20 14:36 | Outpatient (CLI) | payer OTHER | END 2025-08-20 14:37 | disposition home or self-care (01) | LOC: BICMAMMO 14:36 | PROVIDERS: ATTEND Family Medicine | DX: Z12.31 Encounter for screening mammogram for malignant neoplasm of breast (principal); M85.89 Other specified disorders of bone density and structure, multiple sites; Z78.0 Asymptomatic menopausal state; Z80.3 Family history of malignant neoplasm of breast | CPT/HCPCS: 77063; 77067; 77080 ==